=== PATIENT | female | born 1975 | race Caucasian/White ===

== ENCOUNTER 2020-07-14 16:24 | Outpatient (REF) | payer OTHER, SELFPAY | END 2020-07-14 16:25 | disposition home or self-care (01) | LOC: HO.LAB 16:24 | PROVIDERS: PCP Student in an Organized Health Care Education/Training Program; Visit Provider Internal Medicine | DX: Z20.828 Contact with and (suspected) exposure to other viral communicable diseases (principal) | CPT/HCPCS: C9803; U0003 ==

== ENCOUNTER 2021-07-06 12:23 | Outpatient (REF) | payer OTHER, SELFPAY ==
--- NOTE | ~2021-07-06 | XR_ITS ---
EXAMINATION: XR ANKLE, LEFT CLINICAL INFORMATION: Left ankle injury. Pain. COMPARISON: None TECHNIQUE: AP, lateral, and mortise views of the left ankle. FINDINGS: Bone alignment is normal. No acute fracture or dislocation is seen. There is periosteal reaction adjacent to the posterior malleolus suggestive of changes related to old trauma. The ankle mortise is normal. Soft tissues are normal. XR/XR ankle LT min 3V IMPRESSION: No acute fracture or dislocation. Periosteal thickening adjacent to the posterior malleolus suggestive of changes from old trauma.
== END 2021-07-06 12:24 | disposition home or self-care (01) ==
LOC: HO.LAB 12:23
PROVIDERS: PCP Student in an Organized Health Care Education/Training Program; Visit Provider Student in an Organized Health Care Education/Training Program
DX: S99.912D Unspecified injury of left ankle, subsequent encounter (principal)
CPT/HCPCS: 73610

== ENCOUNTER 2021-09-03 08:18 | Outpatient (REF) | payer OTHER, SELFPAY ==
--- NOTE | ~2021-09-03 | MM_ITS ---
EXAMINATION: MM SCREENING DIGITAL BREAST TOMOSYNTHESIS, BILATERAL CLINICAL INFORMATION: Screening. Asymptomatic. The lifetime risk of breast cancer based on the Tyrer-Cuzick Model is 7%. COMPARISON: Mammography: 12/26/2017 (baseline). TECHNIQUE: Digital breast tomosynthesis is performed in both the craniocaudal and mediolateral oblique views along with computer-aided detection (CAD). Synthesized 2D images are generated from the tomosynthesis. FINDINGS: There are scattered areas of fibroglandular density (ACR BI-RADS breast composition Category b). There are no significant masses, abnormal calcifications, or other abnormalities. Parenchymal pattern is similar to baseline exam. No interval mass or architectural abnormality. The axilla and skin contours are unremarkable. No significant changes. MM/MM tomosynthesis screening BI IMPRESSION: No mammographic evidence of malignancy. ASSESSMENT: BI-RADS 1: Negative RECOMMENDATION: Routine annual mammography screening. This patient's information was entered into a reminder system with a target due date for their next mammogram.
== END 2021-09-03 08:19 | disposition home or self-care (01) ==
LOC: HO.MAMMO 08:18
PROVIDERS: PCP Student in an Organized Health Care Education/Training Program; Visit Provider Advanced Practice Midwife
DX: Z12.31 Encounter for screening mammogram for malignant neoplasm of breast (principal)
CPT/HCPCS: 77063; 77067

== ENCOUNTER → 2021-12-07 07:57 | Outpatient (REF) | payer OTHER, SELFPAY ==
--- NOTE | 2021-12-07 08:03 | CA_ITS ---
Transthoracic Echocardiogram Patient (Last, First, Middle): Lala Scott R Gender: Female Date of : 1975 Age: 46 Procedure Date: 12/07/2021 Procedure Type: Transthoracic Echocardiogram Location: OP Height: 162.56 cm Weight: 95.26 kg BSA: 2.00 m2 Heart Rate: bpm BP: 124 / 82 mmHg Group Sales Representative: TYRON Referring MD: Caroline Mcfarland MD Symptoms: I10 HTN R60.0 EDEMA Study Quality: Fair ECG Rhythm: Sinus Conclusions: - The left ventricular systolic function is low normal. The visually estimated ejection fraction is between 50-55%. - No obvious valvular pathology seen on this study. Findings Left Ventricle Normal left ventricular cavity size. There is mildly increased left ventricular wall thickness. The left ventricular systolic function is low normal. The visually estimated ejection fraction is between 50-55%. There is paradoxical septal motion consistent with a left bundle branch block. Diastolic function is normal for age. Right Ventricle Normal right ventricular cavity size and systolic function. Atria Both atria are normal in size. Aortic Valve There is a normal trileaflet aortic valve. There is no aortic valve stenosis. There is no aortic valve regurgitation. Mitral Valve The mitral valve appears normal. There is trace mitral valve regurgitation. There is no mitral valve stenosis. Pulmonic Valve The pulmonic valve is likely normal. Tricuspid Valve There is no tricuspid valve regurgitation. Tricuspid regurgitation envelope is inadequate for calculation of right ventricular systolic pressure. Great Vessels The asc aorta and aortic arch are normal in size. Venous The inferior vena cava is normal in size and collapses greater than 50% with inspiration. Pericardium/Pleural There is no evidence of pericardial effusion. Prior Study Comparison Changes noted compared to prior study dated: 02/03/2017. LVEF slightly lower than previously reported. Recommendations, Care & Conclusions No obvious valvular pathology seen on this study. Measurements 2D Linear Measurements IVSd: 1.23 0.6-0.9/0.6-1.0 cm LVIDd: 5.14 3.9-5.3/4.2-5.9 cm LVIDd Index: 2.57 2.4-3.2/2.2-3.1 cm/m2 LVIDs: 3.58 2.0-3.6 cm LVPWd: 1.30 0.7-1.1 cm LA Diam: 3.80 2.7-3.8/3.0-4.0 cm LAIDs Index: 1.90 1.5-2.3 cm/m2 LV Mass: 328.04 67-162/88-224 g LV Mass Index: 164.02 43-95/49-115 g/m2 LVOT Diam: 2.10 3.0+(-)1.3 cm 2D Systolic Function EF 4C: 54.70 >55% EF 2C: 54.10 >55% EF BiP: 56.90 >55% Mitral Valve MV Pk E: 0.66 MV PK A: 0.57 MV Decel Time: 225.00 E/A: 1.20 E'Lateral: 8.16 E'Medial: 6.64 E/E' Med: 10.00 E/E' Lat: 8.10 PHT: 66.00 MVA PHT: 3.33 Decel [place]: 2.94 Aortic Valve AoV Pk Prince: 1.54 AoV Mn Prince: 1.19 AoV VTI: 0.32 AoV Pk Grad: 9.00 Aov Mn Grad: 6.00 ENRICO Cont.VTI: 2.88 LVOT LVOT Pk Prince: 1.29 LVOT Mn Prince: 0.97 LVOT VTI: 0.27 LVOT Pk Grad: 7.00 LVOT Mn Grad: 4.00 LVOT Diam: 2.10 LVOT Area: 3.46 Diastolic Function MV Pk E: 0.66 MV Pk A: 0.57 E/A: 1.20 E'Medial: 6.64 E/E' Med: 10.00 E' Laterial: 8.16 E/E' Lat: 8.10 Right Ventricle TAPSE (mm): 21.70 TVS' Prince: 10.70 Tricuspid Valve RA Press: 3.00 Great Vessels Aorta Sinus of Valsalva: 3.44 2.0-3.[address] [place]: 2.93 1.7-3.4 cm Ao Asc: 3.30 2.1-3.4 cm Ao Arch: 2.80 Updated in Other Vendor System with Status of Final Juan José Ohara MD electronically signed on 12/07/2021 1:26:10 PM with status of Final
== END ==
LOC: HO.CARD 07:57
PROVIDERS: PCP Student in an Organized Health Care Education/Training Program; Visit Provider Pediatrics
DX: I10 Essential (primary) hypertension (principal); R60.0 Localized edema
CPT/HCPCS: 93306